=== PATIENT | female | born 1960 | race African-American/Black ===

== ENCOUNTER → 2016-05-27 | Day surgery (SDC) | payer OTHER ==
[~2016-05-27] MED LIST: ANCEF VIAL 1 GM ONE; BENADRYL INJ 50 MG VIAL IVP PRN; D5 LR 1000 ML 1,000 ML IV ONE; DILAUDID INJ IVP ONE; DILAUDID INJ IVP PRN; DILAUDID INJ ONE; DIPRIVAN VIAL ONE; FENTANYL INJ 100 mcg ONE; KENALOG INJ 40 MG ONE; MARCAINE 0.25% WITH EPI IJ ONE; NS 50 ML IV + SPIKE MINIBAG* 50 ML IV ONE; NS IRRIGATION 3000 ML 3,000 ML with ADRENALINE CHL INJ 1 MG IR ONE; PHENERGAN INJ 25 MG IVP PRN; REGLAN INJ 10 MG VIAL IVP PRN; SUPRANE IN ONE; VERSED ONE; ZOFRAN INJ 4 MG VIAL IVP PRN; ZOFRAN INJ 4 MG VIAL ONE
[2016-05-27 11:02] VITALS: BP 101/66
== END | disposition home or self-care (01) | DRG 489 ==
LOC: SURG1 07:14
PROVIDERS: ATTEND Specialist
PROC: 0SBD4ZZ Excision of Left Knee Joint, Percutaneous Endoscopic Approach (ICD-10-PCS; principal; 2016-05-27 08:30)
DX: S83.242A Other tear of medial meniscus, current injury, left knee, initial encounter (principal); X58.XXXA Exposure to other specified factors, initial encounter; M17.12 Unilateral primary osteoarthritis, left knee
CPT/HCPCS: A4222; S0020; J0170; J0690; J1170; J2250; J2405; J3010; J3301; J3490; J7120